=== PATIENT | female | born 1990 | race Caucasian/White ===

== ENCOUNTER 2019-01-01 15:33 | Outpatient (CLI) | payer MEDICAID ==
[~2019-01-01] VITALS: Ht 160 cm; Wt 73.1 kg
[2019-01-01 16:47] VITALS: BP 111/66; PULSE 93; RESP 18; Ht 160 cm; Wt 73.1 kg
[2019-01-01] MEDS ORDERED: LACTATED RINGER'S 1,000 ML IV SCH (17:00)
[2019-01-01] MEDS ORDERED: SOD FERRIC GLUC COMPLX 125 MG in SOD CHLORIDE 0.9% 100 ML IVPB ONE (17:00)
--- NOTE | 2019-01-01 20:32 | TRIAGE ---
OB Triage Datetime Report Generated by CPN: 01/01/2019 20:32 Datetime: 01/01/2019 17:37 Labor Evaluation Frequency: 0 Monitor Mode: External Pattern: Normal: <= 5 Contractions in 10 Minutes Resting Tone [place]: Relaxed Comments: REMOVED DUE TO GESTATIONAL AGE Pain Assessment Pain Scale: 0 Pain Presence: None/Denies Pain Type: N/A Pain Goal: 3 Pain Relief Measures: Comfort Measures Datetime: 01/01/2019 16:47 Stage of : OB Triage Datetime: 01/01/2019 16:43 Stage of : OB Triage Datetime: 01/01/2019 16:38 Stage of : OB Triage Assessment Type: Triage Maternal Assessment Level of Consciousness: Keenly Alert, Responsive DTR's/Clonus: DTRs 2+; No Clonus Headache: Denies Blurred Vision: No Respiratory Effort: Unlabored; Regular Rhythm; Equal Expansion Breath Sounds, Left: Clear and Equal Breath Sounds, Right: Clear and Equal Nausea/Vomiting: Denies RUQ Epigastric Pain: Denies Facial Edema: None Temperature Route: Axillary Fall Risk Assessment History of Falling: (0) No Secondary Diagnosis: (0) No Ambulatory Aid: (0) Bedrest/Nurse Assist IV Therapy: (0) No Gait: (0) Normal/Bedrest/Immobile Mental Status: (0) Oriented to Own Ability Fall Score: 0 Fall Risk Score Definition: No Risk: No action required Labor Evaluation Frequency: 0 Monitor Mode: External Pattern: Normal: <= 5 Contractions in 10 Minutes Resting Tone [place]: Relaxed Heart Rate FHR Baseline Rate: 155 Monitor Mode: External US Variability: Moderate 6-25 bpm Accelerations: None Pain Assessment Pain Scale: 0 Pain Presence: None/Denies Pain Type: N/A Pain Goal: 3 Pain Relief Measures: Comfort Measures Datetime: 01/01/2019 16:37 Time of Arrival: 01/01/2019 15:28 EGA: 23.3 Arrived By: Ambulatory Arrived From: Home Chief Complaint: REFERRED FROM CLINIC FOR IRON INFUSION, DENIES LEAKING, BLEEDING OR UC'S Movement: Present Contractions: Denies/Absent Rupture of Membranes: Denies Vaginal Bleeding: None Vaginal Discharge: Denies Recent Sexual Intercouse: Denies Abdominal Trauma: Not Applicable Time Provider Notified: 01/01/2019 16:47 Provider Notified: Dr. Lamb Initial Plan: MONITOR, IRON INFUSION
--- NOTE | 2019-01-02 04:51 | PN ---
Triage Information Date/Time Late entry note for exam done for January 01, 2019 Reason for visit: Weeks of Gestation 23 weeks and 3 days /Para 1 para 0 Diabetes: none Hypertention: none Additional information 28-year-old G1, P0 with IUP at 23 weeks and [address] and care with Dr[address] Ary Sue here today for iron infusion. Patient has a history of iron deficiency anemia. She was planned by primary OB to come to triage in 3 days for iron infusion. Patient denies any leaking of fluid, vaginal bleeding or decreased movement or any complication during course. Objective Vital Signs Date Temp Pulse Resp B/P (MAP) Pulse Ox O2 O2 Flow FiO2 Time Delivery Rate 01/01/19 98.7 93 18 111/66 16:47 (81) Intake and Output 01/01/19 01/01/19 01/02/19 1515:00 23:00 07:00 IntakeIntake Total 600 ml BalanceBalance 600 ml Heart Rate: 130's Contractions: None Exam NST category 1 and appropriate for gestational age Abdomen: Soft, gravid, fundal height consider gestational age No tenderness, no rebound tenderness, no guarding no rigidity no evidence of acute abdomen Results/Medications Imaging Results PROCEDURE: US OB. CLINICAL INDICATION: Evaluate well-being, amniotic fluid index TECHNIQUE: Multiple sonographic images of the pelvis were obtained. The images were reviewed on a PACS workstation. COMPARISON: No prior studies are available for comparison. FINDINGS: There is a single intrauterine gestation. Cardiac activity is present with 128 beats per minute There is a breech presentation. The placenta is anterior. There is no evidence for an abruption or placenta previa. The MVP = 4.4 cm There are no adnexal masses.. IMPRESSION: 1. Single intrauterine gestation in breech presentation. 2. Anterior placenta without evidence of previa or abruption. 3. The MVP = 4.4 cm RPTAT:AAJJ Disposition: Discharge Assessment/Plan IUP at 23 weeks and 3 days Iron deficiency anemia Received iron infusion, requested by primary OB Patient currently asymptomatic. Reports occasional shortness of breath when she walks. Denies any chest pain. Her vitals are stable. I advised the patient to see her PCP for work-up and evaluation of anemia as well as shortness of breath. Her oxygen saturation normal. She is currently asymptomatic. Likely shortness of breath combination of as well as anemia. She was advised to see her primary OB within 48 hours after discharge from the hospital. She is planning to come to triage tomorrow and the day after tomorrow to receive iron infusion recommended by her primary OB. Strict labor precautions and kick count discussed. Patient verbalized understanding. All questions were answered to patient with satisfaction. JUSTINE MADDOX MD Jan 02, 2019 04:51
== END 2019-01-01 20:00 | disposition home or self-care (01) ==
LOC: OBT 15:33 → L-D 15:35 → OBT 20:00
PROVIDERS: ATTEND Obstetrics & Gynecology
DX: O99.012 Anemia complicating pregnancy, second trimester (principal); D55.2 Anemia due to disorders of glycolytic enzymes; O32.1XX0 Maternal care for breech presentation, not applicable or unspecified; Z3A.23 23 weeks gestation of pregnancy
CPT/HCPCS: 36415; 76815; 96360; 96361; 96367; J2916; J7120; Z7500; Z7610; G0463

== ENCOUNTER 2019-01-02 15:33 | Outpatient (CLI) | payer MEDICAID ==
[~2019-01-02] VITALS: Ht 160 cm; Wt 73.0 kg
[2019-01-02 15:57] VITALS: Ht 160 cm; Wt 73.0 kg
[2019-01-02] MEDS ORDERED: SOD CHLORIDE 0.9% 1,000 ML IV SCH (16:30)
[2019-01-02] MEDS ORDERED: SOD FERRIC GLUC COMPLX 125 MG in SOD CHLORIDE 0.9% 100 ML IVPB ONE (17:00)
--- NOTE | 2019-01-02 21:25 | PN ---
Triage Information Date/Time 01/02/19/2052 Reason for visit: IV iron infusion Weeks of Gestation 23w4d /Para primigravida Diabetes: none Hypertention: none Additional information severe anemia Objective Heart Rate: 140's Contractions: None Results/Medications Medications ferric sodium gluconate [id number] Imaging Results adequate for GA Disposition: Discharge Assessment/Plan A IUP 23w4d severe anemia P RTH for 3rd infusioon ARRON CHOWDARY MD Jan 02, 2019 21:25
--- NOTE | 2019-01-03 00:34 | TRIAGE ---
OB Triage Datetime Report Generated by CPN: 01/03/2019 00:33 Datetime: 01/02/2019 20:03 Stage of : OB Triage Datetime: 01/02/2019 19:20 Stage of : OB Triage FHR Baseline Rate: 155 FHR Baseline Changes: No Baseline Change Variability: Moderate 6-25 bpm Datetime: 01/02/2019 17:22 Stage of : OB Triage Datetime: 01/02/2019 17:15 Monitor Mode: External Resting Tone [place]: Relaxed FHR Baseline Rate: 155 Monitor Mode: External US FHR Baseline Changes: No Baseline Change Variability: Minimal - Undetectable to <=5 bpm Accelerations: 10X10 Decelerations: None Comments: Appropriate for Gestational age Pain Presence: None/Denies Datetime: 01/02/2019 16:05 Assessment Type: Triage Level of Consciousness: Keenly Alert, Responsive DTR's/Clonus: DTRs 2+; No Clonus Headache: Denies Blurred Vision: No Respiratory Effort: Unlabored; Regular Rhythm; Equal Expansion Breath Sounds, Left: Clear and Equal Breath Sounds, Right: Clear and Equal Nausea/Vomiting: Denies RUQ Epigastric Pain: Denies Lower Extremities Edema: None Degree: None Upper Extremities Edema: None Degree: None Facial Edema: None History of Falling: (0) No Secondary Diagnosis: (0) No Ambulatory Aid: (0) Bedrest/Nurse Assist IV Therapy: (0) No Gait: (0) Normal/Bedrest/Immobile Mental Status: (0) Oriented to Own Ability Fall Score: 0 Fall Risk Score Definition: No Risk: No action required Datetime: 01/02/2019 15:58 Time of Arrival: 01/02/2019 15:27 EGA: 23.4 Arrived By: Ambulatory Arrived From: Home Chief Complaint: Pt here with order for second iron infusion Movement: Present Contractions: Denies/Absent Rupture of Membranes: Denies Vaginal Discharge: Denies Recent Sexual Intercouse: Denies Abdominal Trauma: Not Applicable Patient Complaints: None Time Provider Notified: 01/03/2019 19:11 Provider Notified: Dr Lamb Initial Plan: NST, Iron infusion Datetime: 01/01/2019 19:36 Frequency: NONE Monitor Mode: External Resting Tone [place]: Relaxed Datetime: 01/01/2019 19:15 Pain Scale: 0 Pain Presence: None/Denies Pain Type: N/A Datetime: 01/01/2019 16:38 Fall Score: 0 Fall Risk Score Definition: No Risk: No action required Datetime: 01/01/2019 16:37 EGA: 23.3
== END 2019-01-02 20:10 | disposition home or self-care (01) ==
LOC: OBT 15:33 → L-D 15:34 → OBT 20:10
PROVIDERS: ATTEND Obstetrics & Gynecology
DX: O99.012 Anemia complicating pregnancy, second trimester (principal); Z3A.23 23 weeks gestation of pregnancy
CPT/HCPCS: 96360; 96361; 96365; J2916; J7030; Z7500; Z7610; G0463

== ENCOUNTER 2019-01-04 15:22 | Outpatient (CLI) | payer MEDICAID ==
[~2019-01-04] VITALS: Ht 160 cm; Wt 73.1 kg
[2019-01-04] MEDS ORDERED: FERR134T PO (15:46)
[2019-01-04] MEDS ORDERED: PREN-93 PO (15:46)
[2019-01-04 15:47] VITALS: BP 106/56; PULSE 93; RESP 18; Ht 160 cm; Wt 73.1 kg
[2019-01-04] MEDS ORDERED: LACTATED RINGER'S 1,000 ML IV SCH (16:00)
[2019-01-04] MEDS ORDERED: SOD FERRIC GLUC COMPLX 125 MG in SOD CHLORIDE 0.9% 100 ML IVPB ONE (16:30)
--- NOTE | 2019-01-04 18:24 | PN ---
Triage Information Date/Time January 02, 2019 Reason for visit: anemia Weeks of Gestation 23w 6d /Para 1/0 Diabetes: none Hypertention: none Additional information Pt with severe iron deficiency anemia and is here for her 3rd and final iron transfusion. PMHx: none. PSHx: none. NKDA. Objective Vital Signs Date Temp Pulse Resp B/P (MAP) Pulse Ox O2 O2 Flow FiO2 Time Delivery Rate 01/04/19 97.8 93 18 106/56 Room Air 15:47 (73) Heart Rate: 150's Heart Rate Comments Accels to 160+ BPM. No decels. Contractions: None Results/Medications Medications Current Medications Lactated Ringer's 1,000 ml @ 125 mls/hr Q8H IV Last administered on 01/04/19at 17:01; Admin Dose 125 MLS/HR; Start 01/04/19 at 16:00 Disposition: Discharge Assessment/Plan A: IUP at 23w 6d. Severe iron deficiency anemia. P: 3rd iron transfusion and then d/c home. F/U with Dr Lamb as scheduled. REYNALDO MCCRAY MD Jan 04, 2019 18:24
--- NOTE | 2019-01-04 18:31 | TRIAGE ---
OB Triage Datetime Report Generated by CPN: 01/04/2019 18:31 Datetime: 01/04/2019 17:34 Labor Evaluation Frequency: 0 Monitor Mode: External Resting Tone [place]: Relaxed Heart Rate FHR Baseline Rate: 150 Monitor Mode: External US Variability: Moderate 6-25 bpm Accelerations: 10X10 Decelerations: Late Comments: EFM TURNED OFF Datetime: 01/04/2019 16:37 Labor Evaluation Frequency: 0 Monitor Mode: External Resting Tone [place]: Relaxed Heart Rate FHR Baseline Rate: 150 Monitor Mode: External US Variability: Moderate 6-25 bpm Accelerations: 10X10 Decelerations: Variable Comments: OCCASIONAL VARIABLE DECEL NOTED DOWN FROM 150 TO 130'S FOR 5-10 SECONDS WITH SPONTANEOUS RETURN TO BASELINE, APPROPRIATE FOR GA Datetime: 01/04/2019 15:44 Maternal Assessment Level of Consciousness: Keenly Alert, Responsive DTR's/Clonus: DTRs 2+; No Clonus Headache: Denies Blurred Vision: No Respiratory Effort: Unlabored; Regular Rhythm; Equal Expansion Breath Sounds, Left: Clear and Equal Breath Sounds, Right: Clear and Equal Nausea/Vomiting: Denies RUQ Epigastric Pain: Denies Facial Edema: None Fall Risk Assessment History of Falling: (0) No Secondary Diagnosis: (0) No Ambulatory Aid: (0) Bedrest/Nurse Assist IV Therapy: (0) No Gait: (0) Normal/Bedrest/Immobile Mental Status: (0) Oriented to Own Ability Fall Score: 0 Fall Risk Score Definition: No Risk: No action required Datetime: 01/04/2019 15:43 Time of Arrival: 01/04/2019 15:17 EGA: 23.6 Arrived By: Ambulatory Arrived From: Home Chief Complaint: PT HERE FOR 3RD IRON INFUSION Movement: Present Contractions: Denies/Absent Rupture of Membranes: Denies Vaginal Bleeding: None Vaginal Discharge: Denies Recent Sexual Intercouse: Denies Abdominal Trauma: Not Applicable (Annotations: Data stored by N on behalf of user) Patient Complaints: None Time Provider Notified: 01/04/2019 16:03 Provider Notified: [email or web address] Initial Plan: nst, vs, call md for orders Datetime: 01/02/2019 16:05 Fall Score: 0 Fall Risk Score Definition: No Risk: No action required Datetime: 01/02/2019 15:58 EGA: 23.4 Datetime: 01/01/2019 16:38 Fall Score: 0 Fall Risk Score Definition: No Risk: No action required Datetime: 01/01/2019 16:37 EGA: 23.3
== END 2019-01-04 18:25 | disposition home or self-care (01) ==
LOC: OBT 15:22 → L-D 15:22 → OBT 18:25
PROVIDERS: ATTEND Obstetrics & Gynecology
DX: O99.012 Anemia complicating pregnancy, second trimester (principal); D50.9 Iron deficiency anemia, unspecified; Z3A.23 23 weeks gestation of pregnancy
CPT/HCPCS: 36415; 96360; 96365; J2916; J7120; Z7500; Z7610; G0463